=== PATIENT | male | born 1990 | race Caucasian/White ===

== ENCOUNTER 2016-10-05 14:38 | Emergency (ER) | payer SELFPAY ==
[~2016-10-05] VITALS: Ht 177.8 cm; Wt 90.9 kg
[2016-10-05 17:23] VITALS: BP 129/68
[2016-10-05] MEDS ORDERED: ACETAMINOPHEN 500 MG TABLET PO ONE (17:30)
[2016-10-05] MEDS ORDERED: IBUPROFEN 800 MG TABLET PO ONE (17:30)
== END 2016-10-05 18:17 | disposition home or self-care (01) ==
LOC: EMS 14:42
DX: S83.411A Sprain of medial collateral ligament of right knee, initial encounter (principal); F22 Delusional disorders; R44.0 Auditory hallucinations; R44.1 Visual hallucinations; F20.9 Schizophrenia, unspecified; X58.XXXA Exposure to other specified factors, initial encounter; Y93.39 Activity, other involving climbing, rappelling and jumping off; Y92.89 Other specified places as the place of occurrence of the external cause; Y99.8 Other external cause status
CPT/HCPCS: 99282